=== PATIENT | female | born 1990 | race Two or more races ===

== ENCOUNTER → 2024-11-30 | Outpatient (CLI) | payer MEDICAID, SELFPAY ==
--- NOTE | 2024-11-30 16:34 | XR_ITS ---
Examination: Complete OB ultrasound greater than 14 weeks Date and time of exam: November 30, 2024, 1640 hrs. Indications: Late to care Findings: Viable intrauterine single fetus with single amniotic sac presentation transverse Cardiac motion 138 BPM Percent the anterior grade 2. Umbilical cord insertion 3 vessel seen. Amniotic fluid index 19.3 cm Cervix 3.9 cm Ovaries obscured by bowel gas. Composite estimated gestational age based on BPD, head circumference, abdominal circumference, femur length is 27 weeks 4 days Estimated weight 1109 g. Survey of intracranial anatomy, spinal anatomy, abdominal anatomy, four-chamber heart performed with no abnormalities identified. Ovaries obscured by bowel gas Impression: Viable intrauterine gestation transverse presentation.
== END | disposition home or self-care (01) ==
PROVIDERS: PCP Obstetrics & Gynecology; Referring Provider Obstetrics & Gynecology; Visit Provider Obstetrics & Gynecology
DX: O32.2XX0 Maternal care for transverse and oblique lie, not applicable or unspecified (principal); Z3A.27 27 weeks gestation of pregnancy
CPT/HCPCS: 76805

== ENCOUNTER 2025-01-02 09:32 | Outpatient (AMB) | payer MEDICAID, SELFPAY ==
--- NOTE | 2025-01-02 09:54 | AMB.OBINITIA ---
Vital Signs 01/02/25 09:55 Height 1.47 m Height Method Stated Weight 75.466 kg Weight Measurement Method Standing Scale BMI 34.7 BP 114/72 Blood Pressure Source Automatic Cuff Blood Pressure Location Left Upper Arm Position Sitting Respiration 16 Pulse 86 Pulse Source Monitor Temp 97.5 F Temp Source Oral Pulse Oximetry (%) 98 Oxygen Delivery Method Room Air Allergies/Home Meds Allergies & Medications Allergies No Known Allergies Allergy (Verified 01/02/25 10:06) Medication Reconciliation vits no.124-ferrous fum 27 mg iron-folic acid 800 mcg tablet ( Vitamin) 1 tab PO QDAY 03/25/23 [History Confirmed 01/02/25] Intake Visit Data Collection New Patient or Established: Established Patient (seen at [facility] within 3 years) Reason for Visit:: INITIAL CARE/ REFERRAL Seen by Clinical Staff ONLY (RN/MA): No Environmental Sustainability Manager Required: Yes Environmental Sustainability Manager's name/title: MICHAEL LATHAM Do You Feel Safe at Home: Yes Authorities Contacted: N/A PCP or OBGYN visit in last 3 months: Yes Hx Now: Yes Are you currently on any form of Control: No Last menstrual period: 05/22/24 Pain Present Currently: No Pain Scale Used: Kennedy-Villanueva/Numerical Pain scale:: 0 Smoking Status Smoking Status: Never smoker Immunizations Flu Vaccine in the Last 12 Months: Yes Flu Vaccine Exclusion Criteria: Already Received Questionnaires Covid-19 Vaccine Questionnaire Has patient been vacinated for Covid-19 Have you been vacinated for Covid-19: No PHQ-9 PHQ-2 Over the last 2 weeks, how often have you been bothered by any of the following problems? 1. Little interest or pleasure in doing things: not at all 2. Feeling down, depressed, or hopeless: not at all Total score: 0 PHQ-9 3. Trouble falling or staying asleep, or sleeping too much: Not at all 4. Feeling tired or having little energy: Not at all 5. Poor appetite or overeating: Not at all 6. Feeling bad about yourself - or that you are a failure or have let yourself or your family down: Not at all 7. Trouble concentrating on things, such as reading the newspaper or watching television: Not at all 8. Moving or speaking so slowly that other people could have noticed? - Or the opposite - being so fidgety or restless that you have been moving around a lot more than usual: not at all 9. Thoughts that you would be better off or of hurting yourself in some way: Not at all Total score: 0 Source: Developed by Drs. Marco Antonio Almanza, Deanna Hernandes, [employer] and colleagues, with an educational lory from [employer]. Depression screen completed yes Social History Living Situation History Lives With: Family Housing: House Housing Other:: pt lives with sister and sister's family Tobacco History Smoking Status: Never smoker Second Hand Smoke Exposure: No Alcohol History Alcohol Intake: Never Domestic Abuse History Do You Feel Safe at Home: Yes History of Present Illness HPI Narrative Assessment referred from [facility] for trnasfer of ob care IUP at gestational age in a 34 years old G 4 P 3 additional diagnoses previous 3 c sections Plan schedule for repeat LTCS at 38 to 39 weeks labs from 11/28/2024 reviewed referred from [facility] clinic education/counselling on BTL medications continue vitamins immunization Flu/ Tdap 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 Medical History Past Medical History: No Hx Neurological Disorders, No Hx Cardiac Disorders, No Hx Cancer, No Hx Blood Disorders, Yes Hx Gastrointestinal Disorders, No Hx Renal Disease, No Hx Diabetes Mellitus Type 1 and No Hx Diabetes Mellitus Type 2 OB Initial Visit OB Flowsheet OB Flowsheet Initial Weight: Not Recorded Date <del>?</del> EGA Weight BP Alb Glu CTX Pres Fundal ht FHR Mov Dilation Station Effacement Hx Notes Visit Note 01/02/25 <del>?</del> 32w 1d 75.466 kg 114/72 absent cephalic 32 155 active Menstrual History Menstrual reliability: definite Flow: normal Menstrual regularity: regular Monthly: Yes Age at menarche: 15 On control pills at conception: No Associated symptoms (LMP): Denies amenorrhea, nausea, vomiting, fatigue, breast tenderness, urinary frequency, irritability, bloating or other OB History : 4 Para: 3 # of Living Children: 3 Delivery History 1st : Child's name: OLGA date: 08/22/20 sex: female Gestational age at delivery (weeks): 37 Delivery type: Delivery complications: NONE History of depression before or after : No 2nd : Child's name: ERICK date: 11/18/21 sex: male Gestational age at delivery (weeks): 38 Delivery type: Delivery complications: NONE History of depression before or after : No 3rd : Child's name: PALMIRA date: 03/26/23 sex: male Gestational age at delivery (weeks): 37 Delivery type: History of depression before or after : No Additional comments: NONE Infection History & Risk Evaluation History of STDs: chlamydia ([place] 2020) Genetic Screening & History Genetic Screening/Teratology Counseling - Includes patient, baby's father, or anyone in either family with: 1. Patient's age 35 years or older as of estimated date of delivery: No 2. Thalassemia (Stateless, Spanish, Mediterranean, or Background); MCV less than 80: No 3. Neural Tube Defect (Meningomyelocele, Spina Bifida, or Anencephaly): No 4. Congenital Heart Defect: No 5. Down Syndrome: No 6. Leonard-Sachs (Ashkenazi Methodist, Cajun, D[place]hi [place]): No 7. David Disease (Ashkenazi Methodist): No 8. Familial Dysautonomia (Ashkenazi Methodist): No 9. Sickle Cell Disease or Trait (): No 10. Hemophilia or other blood disorders: No 11. Muscular Dystrophy: No 12. Cystic Fibrosis: No 13. Upson's Chorea: No 14. Mental Retardation/Autism: No 15. Other inherited genetic or chromosomal disorder: No 16. Maternal Metabolic Disorder (EG,TYPE 1 Diabetes, PKU): No 17. Patient or baby's father had a child with defects not listed above: No 18. Recurrent loss or a stillbirth: No 19. Medications (including supplements, vitamins, herbs or otc drugs)/illicit/recreational drugs/alcohol since last menstrual period: No 20. Any other: No Infection History 1. Live with someone with TB or exposed to TB: No 2. Rash or viral illness since last menstrual period: No 3. Hepatitis B,C: No 4. History of STD: chlamydia ([place] 2020) Other (see comments) Source: [employer] Review of Systems Review of Systems Systems Reviewed: All systems reviewed, normal except as documented Constitutional Constitutional: Denies fatigue Gastrointestinal Gastrointestinal: Denies bloating, Denies nausea and Denies vomiting Genitourinary Genitourinary: Denies amenorrhea and Denies urinary frequency Psychiatric Psychiatric: Denies irritability Endocrine Endocrine: Denies fatigue Exam Narrative Physical exam: Alert and oriented x 3 no shortness of breath Pain no chest pain no palpitations Chest clear bilaterally no additional sounds, no wheezing no rales CVS regular rate and rhythm No CVAT Abdomen nontender, normal bowel sounds No guarding no rigidity No hernias Results Objective Laboratory: reviewed all labs and records Office Procedures OBC Clinic LOC & Office Proc's Nursing/Assessment Patient Status: Established Patient OB Clinic Nursing Assessment: Medication Reconciliation, Update PMH in EMR and Vital Signs OB Clinic Coordination of Care: Complex Care and Chronic Disease 1-5, Consent,records obtained, informed consent, Education Simp Pt/Fam, 1 Ins Authorization, Lab and Imaging orders, Results/Orders obtained and Staff clarify orders Special Needs: Heart tones Established Patient Charge Established Patient Point Assignment: 150 Established Patient Point Charge: EP Level 4 (120-155) Assessment & Plan Diagnosis / Problem List (1) , high-risk: Status: Acute (2) Previous delivery affecting : Status: Acute Plan scheduled repeat LTCS on February at 12.30 pm / Patient still thinking about sterilization vs nexplanon
[2025-01-02 09:55] VITALS: BP 114/72; PULSE 86; RESP 16; TEMP 36.4; O2SAT 98; BMI 34.7
== END 2025-01-02 10:48 | disposition home or self-care (01) ==
LOC: HODSOBC 09:32
PROVIDERS: Supervising Provider Obstetrics & Gynecology; Visit Provider Obstetrics & Gynecology
DX: O09.293 Supervision of pregnancy with other poor reproductive or obstetric history, third trimester (principal); O34.211 Maternal care for low transverse scar from previous cesarean delivery; Z3A.32 32 weeks gestation of pregnancy
CPT/HCPCS: 99214; G0463

== ENCOUNTER 2025-01-24 15:02 | Outpatient (AMB) | payer MEDICAID, SELFPAY ==
--- NOTE | 2025-01-24 15:20 | OBCLNT_ITS ---
Vital Signs 01/24/25 15:27 Height 1.47 m Height Method Stated Weight 78.925 kg Weight Measurement Method Standing Scale BMI 36.5 BP 113/72 Blood Pressure Source Automatic Cuff Blood Pressure Location Left Upper Arm Position Sitting Respiration 18 Pulse 100 Pulse Source Monitor Temp 97.2 F Temp Source Oral Pulse Oximetry (%) 98 Oxygen Delivery Method Room Air Allergies/Home Meds Allergies & Medications Allergies No Known Allergies Allergy (Verified 01/24/25 15:21) Medication Reconciliation vits no.124-ferrous fum 27 mg iron-folic acid 800 mcg tablet ( Vitamin) 1 tab PO QDAY 03/25/23 [History Confirmed 01/24/25] Immunizations Immunizations Flu Vaccine in the Last 12 Months: No Flu Vaccine Exclusion Criteria: No Exclusion Criteria Care OB Visit Log OB Flowsheet Initial Weight: Not Recorded Date -?-?-?-?-?-?-?-?-?-?-?-?- EGA Weight BP Alb Glu CTX Pres Fundal ht FHR Mov Dilation Station Effacement Hx Notes Visit Note 01/02/25 -?-?-?-?-?-?-?-?-?-?-?-?- 32w 1d 75.466 kg 114/72 absent cephalic 32 155 active 01/24/25 -?-?-?-?-?-?-?-?-?-?-?-?- 35w 2d 78.925 kg 113/72 breech 35 144 ac tive CHERELLE Calculator Estimated Delivery Date Method Current WG Current Estimate 02/26/25 LMP (Certain) 35w 3d Other Estimates 02/25/25 Ultrasound #1 35w 4d Notes Visit Date: 01/24/25 Last Updated by: Emma Paniagua MD 34 years previous c section x 3 / declines BTL/ C section scheduled at 38 to 39 weeks / scheduled for 02/15/2025 at 12.30 pm / follow up 1 week Visit Date: 01/02/25 Last Updated by: Emma Paniagua MD 34 years old previous c sections x 3 referred from [facility] 32.1 weeks today labs reviewed / EDC is 02/26/2025 and plan repeat LTCS between 38 and 39 weeks / scheduled for February 15 at 12.30 pm Office Procedures OBC Clinic LOC & Office Proc's Nursing/Assessment Patient Status: Established Patient OB Clinic Nursing Assessment: Medication Reconciliation, Update PMH in EMR and Vital Signs OB Clinic Coordination of Care: Consent,records obtained, informed consent, Education Simp Pt/Fam, Lab and Imaging orders, Results/Orders obtained and Staff clarify orders Special Needs: Heart tones Established Patient Charge Established Patient Point Assignment: 110 Established Patient Point Charge: EP Level 3 (80-115) Assessment & Plan Diagnosis / Problem List (1) Previous delivery affecting : Status: Acute (2) , high-risk: Status: Acute Qualifiers: Trimester: third trimester Qualified Code(s): O09.93 - Supervision of high risk , unspecified, third trimester Plan HISTORY OF PRESENT ILLNESS AI Consent obtained: I, Dr. Paniagua, have obtained verbal consent from the patient, to be recorded during this encounter which may include, but not limited to, medical history, examination, treatment plans, and relevant health information. Patient was informed that recording will be read and reviewed by myself before inclusion in the medical chart. Recordings will be maintained in accordance with State and Federal law and only for a limited period of time for validation purposes, then destroyed and not retained. The patient presents for evaluation of . She is accompanied by an head of visual merchandising. She is currently with her fourth child, with a scheduled section on 02/26/2025. She has expressed a desire not to undergo sterilization following the procedure. PHYSICAL EXAM Vital Signs: heart rate: 134 bpm Obstetric: Fundal height: consistent with gestational age. heart tones: 134 bpm, normal. Other Observations: position: breech, head located on the right side. RESULTS Imaging - Ultrasound: The baby's head is on the right side. Diagnostic Testing - heart rate: 134 bpm, normal. ASSESSMENT AND PLAN 1. : - She is currently and has a scheduled on 02/26/2025. - The heart rate is 134, which is normal. The baby is in a breech position, but this is not a concern due to the planned . - She has been advised to go to the hospital immediately if her water breaks, she starts having contractions, or if she notices a lack of movement. - Follow-up is scheduled in 1 week. Follow-up: The patient will follow up in 1 week.
[2025-01-24 15:27] VITALS: BP 113/72; PULSE 100; RESP 18; TEMP 36.2; O2SAT 98; BMI 36.5
== END 2025-01-24 16:07 | disposition home or self-care (01) ==
LOC: HODSOBC 15:02
PROVIDERS: Supervising Provider Obstetrics & Gynecology; Visit Provider Obstetrics & Gynecology
DX: O09.293 Supervision of pregnancy with other poor reproductive or obstetric history, third trimester (principal); O34.219 Maternal care for unspecified type scar from previous cesarean delivery; Z3A.35 35 weeks gestation of pregnancy
CPT/HCPCS: 99213; G0463

== ENCOUNTER 2025-02-15 11:09 | Inpatient (IN) | payer MEDICAID, SELFPAY ==
[2025-02-15] VITALS (12 sets, daily range): BP systolic 105–121; BP diastolic 63–79; PULSE 54–89; RESP 10–20; TEMP 36.3–36.7; O2SAT 97–100; BMI 36.3
[2025-02-15 12:08] LABS: Basophils # (Auto) 0.0 Thou/mm3 (0.0-0.2); Basophils % (Auto) 0 % (0-2.5); Eosinophils # (Auto) 0.1 Thou/mm3 (0.0-0.5); Eosinophils % (Auto) 2 % (0-10); Hematocrit 39.0 % (36.0-46.0); Hemoglobin 13.8 g/dL (12.0-16.0); Immature Granulocytes Auto 0.05 Thou/mm3 (0.00-0.00); Lymphocytes # (Auto) 1.8 Thou/mm3 (1.0-4.8); Lymphocytes % (Auto) 24 % (10-50); Mean Corpuscular HGB Conc 35.4 g/dl (31.0-37.0); Mean Corpuscular Hemoglobin 31.2 pg (25.0-35.0); Mean Corpuscular Volume 88 fL (80-100); Monocytes # (Auto) 0.5 Thou/mm3 (0.0-0.8); Monocytes % (Auto) 7 % (0-12); Neutrophils # (Auto) 4.7 Thou/mm3 (1.8-7.7); Neutrophils % (Auto) 66 % (37-80); Nucleated Red Blood Cell # 0.00 Thou/mm3 (0.00-0.00); Nucleated Red Blood Cell % 0 /100 WBC (0); Platelet Count 154 Thou/mm3 (140-440); RDW Standard Deviation 42.6 fL (36.4-46.3); Red Blood Count 4.43 Miln/mm3 (4.00-5.20); White Blood Count 7.2 Thou/mm3 (3.6-11.0)
--- NOTE | 2025-02-15 12:12 | PD.LDHP ---
Documentation for date of: 02/15/25 OB Labor/Induct. HPI History of Present Illness : 4 Term pregnancies: 2 Living children: 3 History of sections: Yes Review of Systems Review of Systems Systems Reviewed: All systems reviewed, normal except as documented Past Medical History Surgical History SURGICAL: Positive Section Past Medical History Comments PMH COMMENT: c section x3 and obese Meds Home Medications and Allergies Home Medications ?Medication ?Instructions ?Recorded ?Confirmed ?Type vits no.124-ferrous fum 1 tab PO QDAY 03/25/23 02/15/25 History 27 mg iron-folic acid 800 mcg tablet ( Vitamin) Allergies Allergy/AdvReac Type Severity Reaction Status Date / Time No Known Allergies Allergy Verified 02/15/25 12:04 OB Exam Physical Exam Vital signs: Pulse BP 73 121/70 02/15/25 11:39 02/15/25 11:39 Narrative: Size equal to dates / EDC is 02/26/2025 / previous 3 c sections / refused sterilization uterus non tender Occasional/ contractions non tender FHR is category 1 feta presentation is vertex OB Results Labs 02/15/25 11:40 OB Assessment & Plan Assessment and Plan (1) Previous delivery affecting : Status: Acute Assessment and plan: Patient was given the reason for proceeding with surgery. She was given the risk benefits and options. She chose to proceed with the surgery. Risks of surgery to include risk of infection bleeding, possible injury to the surrounding organs like the urinary bladder, intestines, ureter, uterus, tubes, ovaries, nerves, blood vessels, possible risk of wound dehiscence later on or hernia development later on in future. However the surgery is done when the benefits outweigh the risks Possible risks of blood transfusion and options were also discussed. All questions answered Patient willing to proceed with surgery. (2) , high-risk: Status: Acute Assessment and plan: 34 years at 38.3 weeks for repeat LTCS today Additional Plan Induction method: none Additional Plan Comment: 34 years old with previous 3 c sections / plan repeat LTCS x4 today at 38.3 weeks O positive /RPR NR (2) , high-risk Qualifiers: Trimester: third trimester Qualified Code(s): O09.93 - Supervision of high risk , unspecified, third trimester
[2025-02-15 12:57] LABS: Syphilis Nonreactive (Nonreactive)
[2025-02-15] MEDS: CITRIC ACID/SODIUM CITR 15 ML UDC (BICITRA) 30 ML PO (12:59)
[2025-02-15] MEDS: FAMOTIDINE INJ 10 MG/ML VIAL 2 ML 20 MG IV (12:59)
[2025-02-15] MEDS: ceFAZolin/D5W 2 GM IV 2 GM/100 ML BAG IV (13:00)
--- NOTE | 2025-02-15 14:15 | ESOP_ITS ---
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 A timeout was done. Surgical site infection prophylaxis was given Mcrae was in place and draining clear urine SCDs were in place After verification of adequacy of anesthesia, a Pfannansteil incision was made 3 cm above the symphysis pubis and along the previous c section scars , and carried laterally on the skin and it was carried down to subcutaneous tissue and then to the rectus fascia, the rectus fascia was from underlying muscles by sharp and blunt dissection and lot of thick, scarred tissue encountered and then peritoneal cavity was to be entered and lots of adhesions present between the anterior uterine surface and anterior abdominal wall, parietal peritoneum, and a small window was able to be created to make a ESTEBAN incision to deliver the baby. urinary Bladder was also drawn up A Bradley retractor placed superiorly, and a bladder blade inferiorly Lower uterine segment was not well-formed and exposure was limited due to adhesions Incision made in the lower uterine segment, and amniotic sac ruptured, clear amniotic fluid Baby was delivered as cephalic with the help of Kiwi Vaccuum with 1 pop off . delivery was accomplished by cutting through the rectus abdominis muscles laterally. The vaccuum pressure was in the green zone. Cord clamped and cut and baby received by the waiting nursery team Cord blood collected, placenta removed spontaneously, uterus could not be exteriorized. Uterine cavity clean dry of any remaining membranes with a dry lap, uterine incision closed with the help of 0 Monocryl in 2 layers in a running , interlocking fashion . Hemostasis is good Uterus is firm Both tubes and ovaries could not be visualized Instrument needle and sponge count is correct, hemostasis was checked for again on the uterine incision and it is confirmed Peritoneal closure could not be done due to adhesions Surgicall powder sprayed at adhesionolysis sites on the uterine surface , no active bleeding seen Rectus abdominis muscles approximated with 2-0 Vicryl Rectus fascia approximated with 0 Vicryl running sutures Subcutaneous tissue irrigated closed with and approximated with 3-0 plain catgut Skin approximated with 4-0 Monocryl Tape dressing applied with Dermabond ABD dressing placed on top Mcrae is draining clear urine EBL is 700 cc Patient delivered a liveborn female, Apgars are 9 and 9 Specimen: none Estimated blood loss (ml): 700 Complications: none Narrative: see procedure Surgical staff Nadir MALHOTRA Operation Date: 02/15/25 12:45 <No data on this case meets the specified criteria> Diagnosis Discharge Diagnosis (1) Previous delivery affecting : Status: Acute (2) , high-risk: Status: Acute (3) Pelvic adhesions: Status: Acute Problem List Completed Was Problem List Reviewed/Reconciled?: Yes (2) , high-risk Qualifiers: Trimester: third trimester Qualified Code(s): O09.93 - Supervision of high risk , unspecified, third trimester
--- NOTE | 2025-02-15 14:33 | PD.LDDELS ---
Data ([facility]) Data Hx Section: Yes Maternal Blood Type: O Pos RPR: Non-reactive : 4 Term: 2 Livin Delivery Data (Mendoza) Labor Data Induction/Augmentation Agent: None ROM date: 02/15/25 ROM time: 13:35 Amniotic membrane rupture type: Artificial Amniotic fluid description: Clear Delivery Data EDC: 02/26/25 [place] delivery date: 02/15/25 [place] delivery time: 13:38 Gestational age (days): 38 Placenta delivery date: 02/15/25 Placenta delivery time: 13:38 Delivered by: Emma Paniagua Delivery nurse: SELVIN Pimentel [place] nurse: SELVIN Bradford Import Export Coordinator at delivery: No Support person(s) at delivery: FOB Delivery Method Delivery method: Low Transverse Presentation: Vertex Anesthesia Type Anesthesia Type: Spinal Anesthesia type: Spinal Delivery Room Medications Delivery room medications: Pitocin 20 u IV and See Anesthesia record Placenta Placenta delivery description: Spontaneous Cord blood sent to lab: Yes cord blood collection: Cord Blood Type EBL Estimated blood loss (ml): 700 Umbilical Cord cord description: 3 Vessels [place] Data (Mendoza) Data order: 1 [place]'s gender: Female Identification band number: [id number] weight (gms): 3630 g Weight (pounds): 8 lbs and 0.0 ozs [place] length: 50.8 cm 1 minute: 9 5 minutes: 9
[2025-02-15] MEDS: KETOROLAC INJ 30 MG/ML VIAL IVP (14:51)
--- NOTE | 2025-02-15 15:44 | PC.NURSE ---
per dr. wilder, change diet orders to clear liquids after 8 hours post delivery.
--- NOTE | 2025-02-15 15:46 | PC.NURSE ---
per dr wilder. pt. to have clear liquid diet for 8 hours postdelivery. regular diet tomorrow AM
--- NOTE | 2025-02-15 16:03 | PC.NURSE ---
1600 per cupola charger end recovery early at 1600
[2025-02-15] MEDS: OXYTOCIN in NS 20 units 20 UNIT/1,000 ML BAG 125 UNIT IV (16:53)
[2025-02-15 17:12] LABS: Chlamydia trachomatis PCR Negative (Not Detect); Neisseria Gonorrhoeae DNA PCR Negative (Not Detect); Trichomonas Negative (Negative)
[2025-02-16] MEDS: KETOROLAC INJ 30 MG/ML VIAL IVP (01:21)
[2025-02-16] MEDS: RINGERS LACTATED 1000 ML 1,000 ML 125 ML IV (01:31)
[2025-02-16 03:41] VITALS: BP 107/70; PULSE 89; RESP 17; TEMP 36.7; O2SAT 97
[2025-02-16 06:02] LABS: Basophils # (Auto) 0.0 Thou/mm3 (0.0-0.2); Basophils % (Auto) 0 % (0-2.5); Eosinophils # (Auto) 0.2 Thou/mm3 (0.0-0.5); Eosinophils % (Auto) 2 % (0-10); Hematocrit 35.5 % (36.0-46.0); Hemoglobin 12.5 g/dL (12.0-16.0); Immature Granulocytes Auto 0.03 Thou/mm3 (0.00-0.00); Lymphocytes # (Auto) 1.5 Thou/mm3 (1.0-4.8); Lymphocytes % (Auto) 17 % (10-50); Mean Corpuscular HGB Conc 35.2 g/dl (31.0-37.0); Mean Corpuscular Hemoglobin 30.6 pg (25.0-35.0); Mean Corpuscular Volume 87 fL (80-100); Monocytes # (Auto) 0.5 Thou/mm3 (0.0-0.8); Monocytes % (Auto) 5 % (0-12); Neutrophils # (Auto) 6.5 Thou/mm3 (1.8-7.7); Neutrophils % (Auto) 75 % (37-80); Nucleated Red Blood Cell # 0.00 Thou/mm3 (0.00-0.00); Nucleated Red Blood Cell % 0 /100 WBC (0); Platelet Count 135 Thou/mm3 (140-440); RDW Standard Deviation 40.6 fL (36.4-46.3); Red Blood Count 4.09 Miln/mm3 (4.00-5.20); White Blood Count 8.7 Thou/mm3 (3.6-11.0)
[2025-02-16 07:05] VITALS: BP 117/79; PULSE 94; RESP 18; TEMP 36.9; O2SAT 97
[2025-02-16] MEDS: SIMETHICONE 80 MG CHEW PO (08:06)
[2025-02-16] MEDS: PRENATAL VITAMIN/FE FUM/FA TABLET 1 TAB PO ×2 (08:06)
[2025-02-16] MEDS: DOCUSATE SOD 100 MG CAPSULE PO (08:06)
[2025-02-16 11:00] VITALS: BP 113/77; PULSE 93; RESP 18; TEMP 36.7; O2SAT 97
--- NOTE | 2025-02-16 18:20 | ESPR_ITS ---
Subjective Subjective Interval history: Patient is a 34-year-old -0-0-4 postop day 1 status post repeat low- transverse #[address] Paniagua 02/16/25. The patient is doing well. She is sitting up eating dinner. She is voiding, tolerating a general diet, and passing flatus. She is breast-feeding. Exam Vital Signs Temp Pulse Resp BP Pulse Ox O2 Del Method 98.1 F 93 18 113/77 97 Room Air 02/16/25 11:00 02/16/25 11:00 02/16/25 11:00 02/16/25 11:00 02/16/25 11:00 02/16/25 11:00 Narrative Exam Patient is alert and orient x 3 in no apparent distress Constitutional Constitutional: no acute distress Comments: Fundus is firm at umbilicus. Dressing is removed. Incisions clean dry and intact. Extremities show no significant edema or erythema Objective Labs 02/16/25 05:41 Labs: Laboratory Results - last 24 hr 02/15/25 02/16/25 11:40 05:41 WBC 8.7 RBC 4.09 Hgb 12.5 Hct 35.5 L MCV 87 MCH 30.6 MCHC 35.2 RDW Std Deviation 40.6 Plt Count 135 L Neut % (Auto) 75 Lymph % (Auto) 17 [place] % (Auto) 5 Eos % (Auto) 2 Baso % (Auto) 0 Neut # (Auto) 6.5 Lymph # (Auto) 1.5 [place] # (Auto) 0.5 Eos # (Auto) 0.2 Baso # (Auto) 0.0 Immature Gran # (Auto) 0.03 H Absolute Nucleated RBC 0.00 Immature Gran % 0 Nucleated RBC % 0 Blood Type O Positive Antibody Screen NEGATIVE Crossmatch See Detail Blood Bank Wristband ID Yes Assessment & Plan Problem List (1) Previous delivery affecting : Problem details: Post postop day 1 status post repeat low-transverse section #4. Patient is doing well. Routine post op orders. Probable discharge in the a.m. Preop hemoglobin 13.8 postop hemoglobin 12.5. Status: Acute (2) , high-risk: Status: Acute Time Spent With Patient Time: Total time spent is greater than 50% in coordination of care (as documented) at patient's floor/unit and/or counseling patient: Time with patient: less than 15 minutes
[2025-02-16 19:46] VITALS: BP 106/66; PULSE 92; RESP 17; TEMP 37.2; O2SAT 97
[2025-02-17 03:59] VITALS: BP 124/86; PULSE 97; RESP 19; TEMP 37; O2SAT 95
[2025-02-17 07:35] VITALS: BP 114/77; PULSE 86; RESP 16; TEMP 36.8; O2SAT 97
[2025-02-17] MEDS: PRENATAL VITAMIN/FE FUM/FA TABLET 1 TAB PO (08:00)
[2025-02-17] MEDS: IBUPROFEN TAB 400 MG TABLET 800 MG PO (08:00)
[2025-02-17] MEDS: SIMETHICONE 80 MG CHEW PO (08:01)
[2025-02-17] MEDS: DOCUSATE SOD 100 MG CAPSULE PO (08:01)
[2025-02-17 15:00] VITALS: BP 113/73; PULSE 79; RESP 16; TEMP 36.9; O2SAT 98
== END 2025-02-17 15:50 | disposition home or self-care (01) | DRG 540 ==
LOC: S4SX 11:21 → S4NX 13:12
PROVIDERS: Admitting Provider Obstetrics & Gynecology; Visit Provider Obstetrics & Gynecology
PROC: 10D00Z1 Extraction of Products of Conception, Low, Open Approach (ICD-10-PCS; CPT 59514; principal; 2025-02-15 12:30)
DX: O34.211 Maternal care for low transverse scar from previous cesarean delivery (principal); Z37.0 Single live birth; Z3A.38 38 weeks gestation of pregnancy; N73.6 Female pelvic peritoneal adhesions (postinfective); O99.892 Other specified diseases and conditions complicating childbirth
CPT/HCPCS: 36415; 59409; 85025; 86780; 86850; 86900; 86901; 86923; 87491; 87591; 87661; 94762; A4217; A4314; A4649; J0689; J1885; J2274; J2371; J2590; J3490; J7120; A9270; J2270

== ENCOUNTER 2025-02-22 11:45 | Outpatient (AMB) | payer MEDICAID, SELFPAY ==
--- NOTE | 2025-02-22 14:13 | OBCLNT_ITS ---
Vital Signs 02/22/25 14:23 Weight 71.441 kg Weight Measurement Method Standing Scale BP 108/73 Blood Pressure Source Automatic Cuff Blood Pressure Location Left Upper Arm Position Sitting Respiration 18 Pulse 75 Pulse Source Monitor Temp 98.2 F Temp Source Oral Pulse Oximetry (%) 98 Oxygen Delivery Method Room Air Allergies/Home Meds Allergies & Medications Allergies No Known Allergies Allergy (Verified 02/22/25 14:25) Medication Reconciliation vits no.124-ferrous fum 27 mg iron-folic acid 800 mcg tablet ( Vitamin) 1 tab PO QDAY 03/25/23 [History Confirmed 02/22/25] ibuprofen 800 mg tablet 800 mg PO Q8H PRN pain #60 tabs 02/22/25 [Rx] Immunizations Immunizations Flu Vaccine in the Last 12 Months: No Flu Vaccine Exclusion Criteria: No Exclusion Criteria Care OB Visit Log OB Flowsheet Initial Weight: Not Recorded Date -?-?-?-?-?-?-?-?-?-?-?-?- EGA Weight BP Alb Glu CTX Pres Fundal ht FHR Mov Dilation Station Effacement Hx Notes Visit Note 01/02/25 -?-?-?-?-?-?-?-?-?-?-?-?- 32w 1d 75.466 kg 114/72 absent cephalic 32 155 active 01/24/25 -?-?-?-?-?-?-?-?-?-?-?-?- 35w 2d 78.925 kg 113/72 breech 35 144 ac tive 02/22/25 -?-?-?-?-?-?-?-?-?-?-?-?- 39w 3d 71.441 kg 108/73 CHERELLE Calculator Estimated Delivery Date Method Current WG Comments: [address] [id number] Operative Report Author: MAXINE PANIAGUA MD Patient Name: WENDY HUNTER : 1990 Operative Note - [employer] Procedure Date of procedure: 02/15/25 Procedure Performed: repeat LTCS x4 today / at 38.3 weeks Indication: Previous 3 sections Pre-Op diagnosis: term with previous 3 sections Post-Op diagnosis: same / pelvic adhesions , thick between uterus body and anterior abdominal wall and adnexal area and also omental adhesions with uterine surface Anesthesia type: Spinal Expected Delivery Route/Plan Repeat LTCS done 02/15/2025 Notes Visit Date: 02/22/25 Last Updated by: Maxine Paniagua MD s/p repeat LTCS x4 on 02/15/2025 and doing well / needs more pain medication but feels fine / wants disability papers signed Visit Date: 01/24/25 Last Updated by: Maxine Paniagua MD 34 years previous c section x 3 / declines BTL/ C section scheduled at 38 to 39 weeks / scheduled for 02/15/2025 at 12.30 pm / follow up 1 week Visit Date: 01/02/25 Last Updated by: Maxine Paniagua MD 34 years old previous c sections x 3 referred from [place] [id number] weeks today labs reviewed / EDC is 02/26/2025 and plan repeat LTCS between 38 and 39 weeks / scheduled for February 15 at 12.30 pm Office Procedures [facility] LOC & Office Proc's Nursing/Assessment Patient Status: Established Patient OB Clinic Nursing Assessment: Medication Reconciliation, Update PMH in EMR and Vital Signs OB Clinic Coordination of Care: Complex Care and Chronic Disease 1-5, Consent,records obtained, informed consent, Education Simp Pt/Fam and Results/Orders obtained Special Needs: Heart tones Established Patient Charge Established Patient Point Assignment: 110 Established Patient Point Charge: EP Level 3 (80-115) Assessment & Plan Diagnosis / Problem List (1) Previous delivery affecting : Status: Acute (2) , high-risk: Status: Acute Qualifiers: Trimester: third trimester Qualified Code(s): O09.93 - Supervision of high risk , unspecified, third trimester (3) delivery delivered: Status: Acute (4) Pelvic adhesions: Status: Acute Plan HISTORY OF PRESENT ILLNESS repeat LTCS done 02/15/2025 / here for disability papers and feels fine nd needs more pain medication / called in Motrin follow up in 4 weeks AI Consent obtained: I, Dr. Paniagua, have obtained verbal consent from the patient, to be recorded during this encounter which may include, but not limited to, medical history, examination, treatment plans, and relevant health information. Patient was informed that recording will be read and reviewed by myself before inclusion in the medical chart. Recordings will be maintained in accordance with State and Federal law and only for a limited period of time for validation purposes, then destroyed and not retained. The patient presents for evaluation of . She is accompanied by an burrer marker axle. She is currently with her fourth child, with a scheduled section on 02/26/2025. She has expressed a desire not to undergo sterilization following the procedure. PHYSICAL EXAM Vital Signs: heart rate: 134 bpm Obstetric: Fundal height: consistent with gestational age. heart tones: 134 bpm, normal. Other Observations: position: breech, head located on the right side. RESULTS Imaging - Ultrasound: The baby's head is on the right side. Diagnostic Testing - heart rate: 134 bpm, normal. ASSESSMENT AND PLAN 1. : - She is currently and has a scheduled on 02/26/2025. - The heart rate is 134, which is normal. The baby is in a breech position, but this is not a concern due to the planned . - She has been advised to go to the hospital immediately if her water breaks, she starts having contractions, or if she notices a lack of movement. - Follow-up is scheduled in 1 week. Follow-up: The patient will follow up in 1 week. Additional Plan Patient had a scheduled repeat LTCS on 02/15/2025 Follow Up: 4 Weeks
[2025-02-22 14:23] VITALS: BP 108/73; PULSE 75; RESP 18; TEMP 36.8; O2SAT 98
== END 2025-02-22 14:34 | disposition home or self-care (01) ==
LOC: HODSOBC 11:45
PROVIDERS: Supervising Provider Obstetrics & Gynecology; Visit Provider Obstetrics & Gynecology
DX: O09.293 Supervision of pregnancy with other poor reproductive or obstetric history, third trimester (principal); O34.211 Maternal care for low transverse scar from previous cesarean delivery; Z3A.38 38 weeks gestation of pregnancy
CPT/HCPCS: 99213; G0463